=== PATIENT | female | born 1995 | race African-American/Black ===

== ENCOUNTER 2021-02-24 16:57 | Emergency (ER) | payer OTHER ==
[~2021-02-24] VITALS: Ht 162.6 cm; Wt 82.0 kg
[2021-02-24] MEDS ORDERED: ACETAMINOPHEN 325 MG TABLET PO ONE (18:30)
[2021-02-24 18:55] VITALS: BP 110/71
== END 2021-02-24 19:52 | disposition home or self-care (01) ==
LOC: EMS 16:59
DX: S20.211A Contusion of right front wall of thorax, initial encounter (principal); V49.9XXA Car occupant (driver) (passenger) injured in unspecified traffic accident, initial encounter; Y93.89 Activity, other specified; Y92.89 Other specified places as the place of occurrence of the external cause; Y99.8 Other external cause status
CPT/HCPCS: 71045; 84703; 93005; 99285